=== PATIENT | female | born 1975 | race Caucasian/White ===

== ENCOUNTER 2017-08-14 10:15 | Inpatient (IN) | payer MEDICARE, MEDICAID ==
[2017-08-14 10:53] VITALS: BMI 22.4
--- NOTE | 2017-08-14 13:53 | HP ---
PREOPERATIVE DIAGNOSIS: Enlarged fibroid uterus. SURGERY TO BE PERFORMED: Total abdominal hysterectomy with bilateral salpingectomy and placement of ON-Q pain pump and nerve block. HISTORY OF PRESENT ILLNESS: Ms. Naty Malhotra is a 42-year-old, 0, virgin female, who was referred to me for pelvic pain and a pelvic mass consistent with the fibroid uterus. The patient gi ves a history of regular menstrual cycles that are not very heavy, but are very painful. She gives a history of multiple years of pelvic pain that she injured herself, but never had evaluated. The pat ient had a CT scan completed for palpable exam that was noted by her primary care physician, which de scribed a 9 cm exophytic fibroid as well as an enlarged uterus. An ultrasound in our office confirme d the findings of a fibroid uterus; however, the ultrasound was limited by the patient's inability to tolerate a vaginal ultrasound probe. The patient reports that the mass has been present for a numbe r of years and has grown very slowly. She does have mass effect symptoms, which she reports primaril y that her clothes have been fitting tighter. She desires definitive management of the fibroid uteru s. She has never had any children. She has never had a sexual partner and she is not planning on an y in her lifetime. She also verbalized her understanding of the inability to conceive or b ear a child after hysterectomy is performed. PAST MEDICAL HISTORY: Hypertension, hyperlipidemia, diabetes, and depression. CURRENT MEDICATIONS: Amlodipine 10 mg a day, atorvastatin 10 mg a day, citalopram 10 mg a day, metfo rmin 500 mg twice a day, metoprolol 100 mg a day, and Ambien as needed 2.5 mg at bedtime. ALLERGIES: Include PENICILLIN allergy with swelling of the throat as a child. She also is allergic to GLADYS INHIBITORS. SOCIAL HISTORY: The patient does not use alcohol, tobacco, or drugs. She is unemployed, single. Sh e has never been . She has never been sexually active and she lives with her sister. GYNECOLOGIC HISTORY: Last menstrual period 07/05/2017. Recent Pap smear was normal. No history of PID, STD, and is a virgin female. OBSTETRICAL HISTORY: G0. FAMILY HISTORY: Significant for hypertension and hypercholesterolemia and diabetes in her parents; b ladder in her paternal grandfather; lung in her maternal grandfather; and skin cancer in her paternal grandmother. REVIEW OF SYSTEMS: Negative except as stated above. PHYSICAL EXAMINATION: GENERAL: Small petite female, alert and oriented. VITAL SIGNS: Blood pressure 124/86, weight 115 pounds, BMI 22.5. GENERAL: No acute distress. Alert and oriented. CARDIOVASCULAR: Regular rate and rhythm. LUNGS: Nonlabored breathing. ABDOMEN: A palpable mass is felt below the umbilicus, which is mobile and nontender. GENITOURINARY: Normal external female genitalia. Vaginal exam, normal vaginal mucosa, no vaginal di scharge noted. No cervical lesions, but a very brief exam with a view of a very small cervix. Exam was limited by the patient's ability to tolerate a small vaginal speculum. The uterus is diffusely e nlarged with an enlarged fibroid filling the pelvis. MUSCULOSKELETAL: Normal range of motion. NEUROLOGIC: Oriented to person, place, and time. SKIN: No rashes. EXTREMITIES: No clubbing, cyanosis, or edema. ASSESSMENT AND PLAN: Ms. Naty Malhotra is a 42-year-old nulliparous female with an enlarged fibro id uterus from the limited ultrasound imaging and limited physical exam that the patient is able to t olerate. I suspect that there is an intramural as well as a pedunculated fibroid. Unfortunately, du e to the patient's small stature and the mass filling the entirety of her narrow pelvis and narrow in troitus, I believe that a minimally invasive approach is not feasible for this patient and that the b est route of hysterectomy for her will be in a total abdominal hysterectomy with bilateral salpingect gabe. The patient desires ovarian preservation if her ovaries appear normal. We have also discussed on ON-Q nerve block pump for postoperative pain control, which the patient desires to have placed at the end of the hysterectomy procedure. The patient's questions as well as her sister's questions hav e been answered in detail. She understands the risks are to include, but not limited to bleeding, in fection, damage to intraabdominal or pelvic organs, possible supracervical hysterectomy, safely acces sing and removing the cervix is surgically difficult. She also understands that future medical and/o r surgical management may be indicated based on pathologic review of the specimen and that we may not be able to identify and treat all problems at the time of surgery. The patient's questions have bee n answered.
[2017-10-08] MEDS ORDERED: CEFAZOLIN/Water 2 GM/20 ML SYRINGE ONE (06:42)
[2017-10-08] MEDS ORDERED: Famotidine 20 MG TAB ONE (06:43)
[2017-10-08] MEDS ORDERED: Gabapentin 300 MG CAP ONE (06:43)
[2017-10-08] MEDS ORDERED: Famotidine/PF 20 mg/2ml Vial ONE (06:44)
[2017-10-08] MEDS ORDERED: Fentanyl 250 MCG/5 ML VIAL ONE (06:53)
[2017-10-08 07:12] LABS: Hemoglobin 11.4 g/dL (12.0-16.0); Mean Corpuscular HGB CONC 33.2 g/dL (32.0-36.0); Mean Corpuscular Hemoglobin 26.7 pg (27.0-31.0); Mean Corpuscular Volume 80.6 fl (81.0-99.0); Mean Platelet Volume 8.2 fL (7.4-10.4); Platelet Count 322 thou/uL (130-400); RBC Distribution Width 14.6 % (11.5-14.5); Red Blood Cell (RBC) Count 4.28 mill/uL (4.20-5.40); White Blood Cell (WBC) Count 7.6 thou/uL (4.8-10.8)
[2017-10-08 07:25] LABS: BHCG - Serum Negative (NEGATIVE); Pregs Control Background? CLEAR/WHITE (CLR/WHITE); Pregs Control Bar Appear? YES (CONTROL BAR)
[2017-10-08] MEDS ORDERED: Levofloxacin 500 mg/D5W 100 ml Premix Bag ONE (07:26)
[2017-10-08] MEDS ORDERED: Clindamycin/D5W 900 mg/50 ml Premix Bag ONE (07:26)
[2017-10-08] MEDS ORDERED: Ropivacaine 0.2% 550 ML 750 ML NERVE BLCK SCH (08:00)
[2017-10-08] MEDS ORDERED: Bupivacaine/Epinephrine 0.25% 30 ML VIAL ONE (08:17)
[2017-10-08] MEDS ORDERED: Ropivacaine HCl/PF 750 ML in Premix Bag 1 BAG NERVE BLCK SCH (09:15)
[2017-10-08] MEDS ORDERED: Promethazine HCl 25 MG/ML VIAL SLOW IVP PRN (09:52)
[2017-10-08] MEDS ORDERED: Promethazine HCl 25 MG/ML VIAL IM PRN (09:52)
--- NOTE | 2017-10-08 12:17 | OP ---
DATE OF PROCEDURE: 10/08/2017 PREOPERATIVE DIAGNOSES: 1. Large fibroid uterus. 2. Pelvic pain. 3. Virginal introitus and narrow pelvis. POSTOPERATIVE DIAGNOSES: 1. Large fibroid uterus. 2. Pelvic pain. 3. Virginal introitus and narrow pelvis. PROCEDURES PERFORMED: 1. Total abdominal hysterectomy with bilateral salpingectomy and right oophorectomy. 2. Placement of ON-Q pump. SURGEON: Travis Gore D.O. WASTEWATER TECHNICIAN: Puja Fry M.D. ANESTHESIA: GETA per Dr. Thomas. ESTIMATED BLOOD LOSS: 100 mL. URINE OUTPUT: 100 mL. COMPLICATIONS: None. FINDINGS: 1. Narrow virginal introitus. 2. Narrow android pelvis. 3. Large 8-10 cm posterior fibroid filling the cul-de-sac. 4. Normal-appearing fallopian tubes. 5. Normal appearing left ovary. 6. Right ovary with adhesions to the fibroid and uterus, otherwise normal appearing. PROCEDURE IN DETAIL: Patient was taken back to the OR with IV fluids running. Once she was in the o perating room, she was placed in dorsal supine position and general anesthesia was obtained. Once th e patient was asleep, the abdomen and vagina were prepped and draped in normal fashion for abdominal hysterectomy. Prior to draping, A Gore catheter was placed using sterile technique and the bladder was drained with a Gore to gravity. The surgeons were scrubbed in. A Pfannenstiel skin incision wa s made with the scalpel. The skin incision was carried down through the subcutaneous tissue to the f ascia. Once the fascia was reached, it was incised in the midline and extended superolaterally with curved Alatorre scissors. Krishan clamps were placed at the superior border of the fascia, which was umer ply and bluntly dissected off the rectus abdominis muscles in both caudad and cephalad directions. O nce the fascia was dissected away from the rectus abdominis muscles, the peritoneum was bluntly enter ed in the midline and stretched laterally. The uterus was palpated as well as a large fibroid fillin g the cul-de-sac. The bowel was packed away with moist laps and O'Sony-O'Greene retractor was pl aced into the abdominal peritoneal cavity for retraction and visualization, both upper and lower blad es were placed on the O'Sony-O'Greene retractor with good visualization. The uterus was easily i dentified; however, the large fibroid could not be elevated out of the abdominal cavity to the uterus was left in situ for the beginning of the hysterectomy procedure. Beginning on the patient's left s elis, the left fallopian tube was identified and elevated. The mesosalpinx was cauterized and a salpi ngectomy was performed with the left tube being sent for pathologic review with the final specimen un til the left fallopian tube was removed. The round ligament was identified and elevated away from th e pelvic sidewall. One stay suture was placed in the round ligament. The round ligament was then in cised with Bovie cauterization and divided into anterior and posterior leaf, it was taken down anteri gladis where a bladder flap was created and the bladder was dissected away from the uterus and cervix. Next, a Negar clamp was placed just below the round ligament across the utero-ovarian ligament. Th is pedicle was cut with Alatorre scissors and doubly suture ligated. The left ovary then fell away to th e pelvic sidewall. The uterine artery was then skeletonized with Bovie cauterization in fine dissect ion technique. Once this was completed on the patient's left side, attention was turned to the right side. In similar fashion, the right salpingectomy was performed and the tube was handed off for pat hologic review. The round ligament was identified, suture ligated and divided into anterior and post erior leafs. The right ovary was noted to be more densely adherent to the posterior aspect of the ut erus and the fibroid, but attempt was made to preserve the ovary by placing a clamp across the utero- ovarian ligament. This pedicle was then cut and doubly suture ligated with ovary falling away to the pelvic sidewall on the right. The round ligament and broad ligament were divided on the patient's r ight side. The uterine artery was skeletonized. Negar clamp was placed over the uterine artery whi ch was then clamped, cut, and suture ligated. Next, the uterine artery on the patient's contralatera l side was clamped, cut, and ligated as well. The blood supply taken down and the bladder dissected down well away from the cervix. The cervix was easily palpated. The posterior fibroid uterus was al l contained behind the uterus growing from the posterior aspect and filling the cul-de-sac inferiorly . The cervix was completely from the posterior fibroid and at this point the decision was made to amputate the uterus and fibroid from the cervix to better visualization during the final step s of the hysterectomy with one finger between the cervix and the posterior fibroid. The uterus was a mputated from the cervix using Bovie cauterization. Once it was completely amputated, the uterus and fibroid were easily removed from the surgical field. There was good hemostasis at this point of the cervical stump. A double-toothed tenaculum was placed at the cervical stump. A series of straight clamps were used to dissect the remaining blood supply and paracervical tissue from the pelvis. This was achieved with 2 additional placement of straight clamps along the cervix bilaterally. Once the cervical vaginal junction was reached, curved Heaneys were placed bilaterally at the cervical vaginal junction. The remaining cervical stump was then amputated with Alatorre scissors and handed off for pat hologic review. Hofmeister stitch of Vicryl suture was placed under each of the right and left Heane y clamp. After the Negar clamps were removed, additional 3 sutures were placed in the midline for c omplete hemostasis of the vaginal cuff. Once hemostasis of the vaginal cuff was noted, the vaginal c uff and pedicles along the pelvic sidewall were copiously irrigated and suctioned dry. An area of bl eeding was noted at the right ovary at the IP ligament. Sutures were placed as well as Bovie cauteri zation used in an attempt to control this bleeding conservatively and preserve the ovary; however, a Negar clamp had to be applied behind the ovary for hemostasis. The ovary and remaining tissue was t hen cut and handed off for pathologic review. This pedicle was doubly suture ligated and hemostasis was then achieved. The layer of Jorge was applied behind the bladder flap. No areas of bleeding we re noted. All four sponges were removed from the abdominal cavity. The count was correct. The O'Co nnor-O'Greene was removed from the abdominal cavity. The muscle belly and fascia were inspected wi th no areas of bleeding noted. The peritoneum was then reapproximated with chromic suture. With the peritoneal layer closed, the muscle was inspected again with a small area of bleeding noted from the left pyramidalis. One suture was placed in this muscle with hemostasis noted. The muscle belly and fascia was irrigated and dried. No bleeding was noted. Under direct visualization, two ON-Q cathet er tips were placed from the superior aspect of the incision through the fascia and placed into the c orners of the incision. This catheter tips were primed. The fascia was then closed with PDS suture from corner to corner in a running fashion. The subcutaneous tissue was then irrigated and dried. A ny small areas of bleeding were controlled with Bovie cauterization. Subcutaneous tissue was then re approximated with plain gut suture. The skin was closed with 4-0 Monocryl and dressed with Dermabond dressing. The patient was then taken to the recovery room where she was cleaned and dried in good c ondition.
[2017-10-08] MEDS ORDERED: Bisacodyl 10 MG SUPP PR PRN (12:28)
[2017-10-08] MEDS ORDERED: Acetaminophen 325 MG TAB PO PRN (12:28)
[2017-10-08] MEDS ORDERED: Morphine 5 MG/ML SYRINGE SLOW IVP PRN (12:28)
[2017-10-08] MEDS ORDERED: Simethicone Chewable 80 MG TAB PO PRN (12:28)
[2017-10-08] MEDS ORDERED: Ondansetron HCl/PF 4 MG/2 ML Vial IVP PRN (12:28)
[2017-10-08] MEDS ORDERED: Acetaminophen/Codeine 30-300mg Tablet PO PRN (12:28)
[2017-10-08] MEDS ORDERED: diphenhydrAMINE 25 MG CAP PO PRN (12:28)
[2017-10-08] MEDS ORDERED: Ketorolac Tromethamine 30 MG/ML VIAL IVP SCH (12:30)
[2017-10-08] MEDS ORDERED: Ibuprofen 800 MG TAB PO PRN (12:59)
[2017-10-08] MEDS ORDERED: Ketorolac Tromethamine 30 MG/ML VIAL ONE (14:24)
[2017-10-08] MEDS ORDERED: Lidocaine 1% PF 5 ML VIAL ONE (14:24)
[2017-10-08] MEDS ORDERED: PHENYLEPHRINE-NS 100 MCG/ML 10 ML SYRINGE ONE (14:24)
[2017-10-08] MEDS ORDERED: Glycopyrrolate 0.2 MG/ML 5 ML SYRINGE ONE (14:24)
[2017-10-08] MEDS ORDERED: ePHEDrine/0.9% NaCl/PF SYRINGE 50 mg/10 ml ONE (14:24)
[2017-10-08] MEDS ORDERED: PROPOFOL 200 MG/20 ML VIAL ONE (14:24)
[2017-10-08] MEDS: Sodium Chloride 0.9% 1,000 ML IV SCH ×2 (16:29→18:16)
[2017-10-08] MEDS: metFORMIN 500 MG TAB PO SCH (18:12)
[2017-10-08] MEDS: Ketorolac Tromethamine 30 MG/ML VIAL IVP SCH (18:15)
[2017-10-08] MEDS: Citalopram 20 MG TAB PO SCH (21:29)
[2017-10-08] MEDS: Atorvastatin Calcium 40 MG TAB PO SCH (21:29)
[2017-10-08] MEDS: Calcium Carbonate + Vit D 1 TAB PO SCH (21:29)
[2017-10-08] MEDS: Amlodipine 5 MG TAB PO SCH (21:29)
[2017-10-09] MEDS: Ketorolac Tromethamine 30 MG/ML VIAL IVP SCH ×2 (00:55→06:37)
[2017-10-09 05:32] LABS: Hemoglobin 9.1 g/dL (12.0-16.0); Mean Corpuscular HGB CONC 33.3 g/dL (32.0-36.0); Mean Corpuscular Hemoglobin 26.9 pg (27.0-31.0); Mean Corpuscular Volume 80.8 fl (81.0-99.0); Mean Platelet Volume 7.9 fL (7.4-10.4); Platelet Count 218 thou/uL (130-400); RBC Distribution Width 14.7 % (11.5-14.5); Red Blood Cell (RBC) Count 3.39 mill/uL (4.20-5.40)
[2017-10-09] MEDS: Sodium Chloride 0.9% 1,000 ML IV SCH ×3 (06:37→17:52)
--- NOTE | 2017-10-09 08:47 | PDOC.EVN ---
Event Note - Event Note Event Note: POD#1 S: pain controlled with meds, ramirez out this AM, has not ambulated yet, tolerating clears O: Vital Signs Temp 98.4 F 10/09/17 07:57 Pulse 72 10/09/17 07:57 Resp 20 10/09/17 07:57 BP 128/64 10/09/17 07:57 Pulse Ox 98 10/09/17 07:57 Intake & Output 10/08/17 10/09/17 10/09/17 18:59 06:59 18:59 Intake Total 2640 Output Total 2550 Balance 90 Intake: Intake, IV Amount 2300 Oral 340 Output: Urine 850 Output, Ramirez 1300 Emesis 400 Other: Voiding Method Indwelling Catheter Indwelling Catheter Toilet Gen: NAD, A and O CHEST: nonlabored breathing Abd: soft, mild/expected distention and tympany, appropriate tenderness post op , incision CDI, catheter sites CDI Ext: SCDs on BLE Laboratory Results - last 24 hr 10/09/17 05:09 WBC 6.0 RBC 3.39 L Hgb 9.1 L Hct 27.4 L MCV 80.8 L MCH 26.9 L MCHC 33.3 RDW 14.7 H Plt Count 218 MPV 7.9 A/P: POD #1 PAN/RSO/LS, doing well, advance diet this AM, discussed plan to get up into chair this AM and ambulate/shower later today. Continue post op care.
[2017-10-09] MEDS: Loratadine 10 MG TAB PO SCH (09:32)
[2017-10-09] MEDS: metFORMIN 500 MG TAB PO SCH ×2 (09:32→17:50)
[2017-10-09] MEDS: Calcium Carbonate + Vit D 1 TAB PO SCH ×2 (09:32→22:52)
[2017-10-09] MEDS: Fluticasone Propionate Nasal Spray 16 gm Bottle NASAL SCH (09:33)
[2017-10-09] MEDS: Ibuprofen 800 MG TAB PO SCH ×2 (13:46→22:53)
[2017-10-09] MEDS: Acetaminophen/Codeine 30-300mg Tablet PO PRN (22:50)
[2017-10-09] MEDS: Atorvastatin Calcium 40 MG TAB PO SCH (22:52)
[2017-10-09] MEDS: Citalopram 20 MG TAB PO SCH (22:52)
[2017-10-09] MEDS: Amlodipine 5 MG TAB PO SCH (22:53)
[2017-10-10] MEDS: Sodium Chloride 0.9% 1,000 ML IV SCH ×2 (05:35→11:17)
[2017-10-10] MEDS: Ibuprofen 800 MG TAB PO SCH (06:36)
[2017-10-10] MEDS: Loratadine 10 MG TAB PO SCH (08:41)
[2017-10-10] MEDS: Calcium Carbonate + Vit D 1 TAB PO SCH (08:41)
[2017-10-10] MEDS: Fluticasone Propionate Nasal Spray 16 gm Bottle NASAL SCH (08:41)
[2017-10-10] MEDS: metFORMIN 500 MG TAB PO SCH (08:41)
--- NOTE | 2017-10-10 08:49 | PDOC.EVN ---
Event Note - Event Note Event Note: POD2 S: ambulating in the hallways, no issues voiding or passing gas, tolerating regular diet and pain controlled with oral meds O: VSWNL Gen: A and O, NAD CHest: nonlabored breathing Abd: soft, non distended, mild TTP around incision, bruising minimal/decreased from yesterday Nishi;dry Ext: NROM Path:benign A/P: POD2 doing well, would like to go home later this PM. Has pain meds at home, reviewed use of pain meds in detail.
[2017-10-10] MEDS: Acetaminophen/Codeine 30-300mg Tablet PO PRN (11:43)
[2017-10-10 12:12] VITALS: BP 130/65; TEMP 98.6
--- NOTE | 2017-10-10 19:29 | DIS ---
DATE OF ADMISSION: 10/08/2017 DATE OF DISCHARGE: 10/10/2017 ADMISSION DIAGNOSIS: Planned hysterectomy. DISCHARGE DIAGNOSIS: Planned hysterectomy. HOSPITAL COURSE: Ms. Naty Malhotra is a 42-year-old who was admitted on 10/08/2017 for a planned total abdominal hysterectomy for a large fibroid uterus. The patient underwent the aforementioned pr ocedure without complication. Her completed procedure was a total abdominal hysterectomy with bilate ral salpingectomy and right oophorectomy. The patient's postoperative course was uncomplicated. By postoperative day #2, she was ambulating in the hallways, tolerating a regular diet, and her pain was controlled with oral medications. She was voiding and passing gas without difficulty. On the day o f discharge, the ON-Q catheter tips are planned to be removed. She has a followup visit in my office in 1-2 weeks. Postoperative pain medication has been discussed in detail. The patient's questions have been answered.
[2017-10-13] MEDS ORDERED: Ibuprofen 800 MG TAB PO SCH (22:00)
== END 2017-10-10 13:06 | disposition home or self-care (01) | DRG 743 ==
LOC: SURG A 10-08 06:10 → 3SE 10-08 11:07
PROVIDERS: ADMIT Obstetrics & Gynecology; ATTEND Obstetrics & Gynecology
PROC: 0UT70ZZ Resection of Bilateral Fallopian Tubes, Open Approach (ICD-10-PCS; 2017-10-08)
PROC: 0UT20ZZ Resection of Bilateral Ovaries, Open Approach (ICD-10-PCS; 2017-10-08)
PROC: 0UT90ZZ Resection of Uterus, Open Approach (ICD-10-PCS; principal; 2017-10-10)
DX: D25.1 Intramural leiomyoma of uterus (principal); M95.5 Acquired deformity of pelvis; I10 Essential (primary) hypertension; E78.5 Hyperlipidemia, unspecified; E11.9 Type 2 diabetes mellitus without complications; F32.9 Major depressive disorder, single episode, unspecified; Z79.84 Long term (current) use of oral hypoglycemic drugs; Z88.0 Allergy status to penicillin; Z88.8 Allergy status to other drugs, medicaments and biological substances
CPT/HCPCS: 36415; 84703; 85027; 86850; 86900; 86901; 88307; A4216; J0131; J1885; J1956; J2001; J2405; J2704; J2795; J3010; J3490; S0028

== ENCOUNTER 2017-08-14 10:28 | Outpatient (CLI) | payer MEDICARE, MEDICAID ==
[2017-08-14 12:47] LABS: BHCG - Serum Negative (NEGATIVE); Pregs Control Background? CLEAR/WHITE (CLR/WHITE); Pregs Control Bar Appear? YES (CONTROL BAR)
== END 2017-08-14 10:29 | disposition home or self-care (01) ==
LOC: LABBT 10:28
PROVIDERS: ATTEND Obstetrics & Gynecology
DX: Z01.812 Encounter for preprocedural laboratory examination (principal); D25.9 Leiomyoma of uterus, unspecified
CPT/HCPCS: 84703; 86850; 86900; 86901

== ENCOUNTER 2017-10-18 10:20 | Observation (INO) | payer MEDICARE, MEDICAID ==
[2017-10-18] MEDS ORDERED: Fentanyl 100 MCG/2 ML VIAL ONE (11:27)
[2017-10-18] MEDS ORDERED: Midazolam HCl 2 mg/2 ml Vial ONE (11:37)
--- NOTE | 2017-10-18 12:34 | PDOC.OP ---
Operative Note - Operative Note Operative Note: Preop Dx: vaginal bleeding approx 1 week after hysterectomy Post op Dx: sp repair of vaginal cuff Surg: [facility] Assist: Lisandra Procedure: EUA, repair of vaginal cuff, repair of vaginal laceration Findings: left corner of vaginal cuff with active bleeding, right vaginal sidewall laceration, likely from previous exam or prep, repaired, admin of 1U PRBC in OR. Complications: none No specimens
[2017-10-18] MEDS ORDERED: Ondansetron HCl/PF 4 MG/2 ML Vial IVP PRN (13:32)
[2017-10-18] MEDS ORDERED: Zolpidem Tartrate 5 MG TAB PO PRN (13:32)
[2017-10-18] MEDS ORDERED: diphenhydrAMINE 25 MG CAP PO PRN (13:32)
[2017-10-18] MEDS ORDERED: Morphine 4 MG/ML VIAL SLOW IVP PRN (13:32)
[2017-10-18] MEDS ORDERED: Bisacodyl 10 MG SUPP PR PRN (13:32)
[2017-10-18] MEDS ORDERED: Simethicone Chewable 80 MG TAB PO PRN (13:32)
[2017-10-18] MEDS ORDERED: Acetaminophen 325 MG TAB PO PRN (13:32)
[2017-10-18] MEDS ORDERED: Calcium Chloride 1 GM/10 ML Abboject SYRINGE ONE (13:52)
[2017-10-18] MEDS ORDERED: ePHEDrine/0.9% NaCl/PF SYRINGE 50 mg/10 ml ONE (13:52)
[2017-10-18] MEDS ORDERED: PROPOFOL 200 MG/20 ML VIAL ONE (13:52)
[2017-10-18] MEDS ORDERED: Ondansetron HCl/PF 4 MG/2 ML Vial ONE (13:52)
[2017-10-18] MEDS ORDERED: Succinylcholine Chloride 20 MG/ML 10 ml SYRINGE FS ONE (13:52)
[2017-10-18] MEDS ORDERED: Lidocaine 1% PF 5 ML VIAL ONE (13:52)
[2017-10-18] MEDS ORDERED: Dexamethasone 20 MG/5 ML VIAL ONE (13:52)
--- NOTE | 2017-10-18 13:53 | OP ---
DATE OF PROCEDURE: 10/18/2017 PREOPERATIVE DIAGNOSIS: Vaginal bleeding, approximately 1-1/2 weeks after abdominal hysterectomy. POSTOPERATIVE DIAGNOSIS: Bleeding from vaginal cuff, status post repaired. PROCEDURES PERFORMED: Exam under anesthesia with oversew of the vaginal cuff and small vaginal sidew all laceration. SURGEON: Travis Gore D.O. SALES ADMINISTRATION SPECIALIST: Puja Fry M.D. ANESTHESIA: GETA per Dr. Thomas. COMPLICATIONS: None. BLOOD TRANSFUSION: Intraoperative blood transfusion of 1 unit of packed red blood cells at the end o f the case. ESTIMATED BLOOD LOSS: Prior to the operation, approximately 200 ml; intraoperative blood loss, less than 10 mL. FINDINGS: 1. Small right-sided vaginal laceration, likely due to previous exam or occurring during vaginal pre p. 2. Left corner of the vaginal cuff edge friable with small amount of bleeding. 3. Vaginal cuff intact. INDICATIONS: Ms. Naty Malhotra is approximately 1-1/2 weeks after a total abdominal hysterectomy for a large fibroid uterus. The patient's postoperative course has been uncomplicated until now. Adrien light had an incision check and was doing well earlier in my office this week. She reports no bleeding u ntil yesterday evening. She reports she had a very busy day and was very active and noted some spott ing whenever she laid down to sleep. When she woke up this morning, she noted profuse bright red ble eding and passage of clots, called our office and then presented to our [facility]. The patient was seen and examined there. I spoke with the ER doctor, and we agreed for transfer to [facility] in [place] for further evaluation and management. On presentation to the ER, I saw the patient and noted that her pad was completely soiled as well as part of her undergarme nt. Her hemoglobin at that time was approximately 8, and I counseled her for the indication for exam under anesthesia with suspected vaginal cuff bleed. The patient agreed. PROCEDURE DETAILS: The patient was taken back to the OR with IV fluids running. Once she was in the OR, general anesthesia was obtained. The patient was then placed in the lithotomy position using ca ndy cane stirrups. The vagina was then prepped and draped in normal fashion for vaginal surgery. A Gore catheter was placed using sterile technique. A PDS pediatric speculum was placed into the vagi na and the vaginal cuff was able to be visualized in its entirety. An Allis clamp was placed at the patient's left corner of the vaginal cuff where the active bleeding was noted. This area of the cuff was oversewn with Vicryl suture with hemostasis noted immediately. Of note, the patient was known t o have a small introitus and a small cervix at the time of her last surgery and her vaginal cuff appe ared to be healing well. The entire approximate 2 cm of the vaginal cuff were inspected and oversewn while she was in the OR today. Once the vaginal cuff was oversewn, the vagina was taken off tension with no bleeding noted. A small sidewall laceration was noted at the right hymenal ring and this wa s repaired with one stitch of Vicryl suture. FloSeal was placed up at the vaginal cuff wall and 1 un it of packed red blood cells was administered at the end of the case. POSTOPERATIVE PLANS: Include transfer to the recovery room, transfusion of a second unit of packed r ed blood cells, and then transferred to the floor for further observation later this afternoon.
[2017-10-18 14:23] VITALS: BMI 22.4
[2017-10-18] MEDS: Ketorolac Tromethamine 30 MG/ML VIAL IVP SCH (18:01)
[2017-10-19] MEDS: Ketorolac Tromethamine 30 MG/ML VIAL IVP SCH ×2 (01:12→06:21)
[2017-10-19 05:26] LABS: Mean Corpuscular HGB CONC 34.3 g/dL (32.0-36.0); Mean Corpuscular Hemoglobin 28.7 pg (27.0-31.0); Mean Corpuscular Volume 83.6 fl (81.0-99.0); Platelet Count 235 thou/uL (130-400); RBC Distribution Width 14.3 % (11.5-14.5); Red Blood Cell (RBC) Count 3.48 mill/uL (4.20-5.40)
[2017-10-19 07:48] VITALS: BP 135/66; TEMP 98.9
--- NOTE | 2017-10-19 11:15 | PDOC.EVN ---
Event Note - Event Note Event Note: HD2 POD 1 S: feeling well, no concerns, no bleeding O: Vital Signs (12 hours) Temp Pulse Resp BP Pulse Ox 10/19/17 08:21 98.9 F 78 16 10/19/17 07:25 98.9 F 78 16 135/66 92 L 10/19/17 01:10 98.3 F 86 16 133/63 Weight Weight 115 lb GEN : NAD Abd: soft, NTTP Nishi: dry Laboratory Results - last 24 hr 10/19/17 05:10 WBC 11.0 H RBC 3.48 L Hgb 10.0 L Hct 29.1 L MCV 83.6 MCH 28.7 MCHC 34.3 RDW 14.3 Plt Count 235 MPV 7.0 L POD1 sp oversew bleeding vag cuff and transfusion of 2 U PRBCs. Doing well, ready for DC.
--- NOTE | 2017-10-19 19:56 | DIS ---
ADMISSION DIAGNOSES: Vaginal bleeding and symptomatic anemia. DISCHARGE DIAGNOSIS: Status post revision of vaginal cuff and transfusion of 2 units of packed red b lood cells. HOSPITAL COURSE: Ms. Naty Malhotra presented to the ER with acute vaginal bleeding and symptomati c anemia. She was expedited to the operating room where she had an exam under anesthesia and active bleeding of the vaginal cuff was noted. The vaginal cuff was oversewn with hemostasis. The patient received 1 unit of packed red blood cells intraoperative and then a second postoperative. On postope rative day #1, she was doing well. She had a hemoglobin of 10. She was ambulating and tolerating re gular diet and had no vaginal bleeding. The patient was discharged home in good condition.
[2017-10-23 10:30] LABS: Actual Bicarbonate (HCO3a) 21.9 mEq/L (22-26); Analyzer IN Cardio OR; Base Excess (BEa) -4.3 mEq/L (0 (+/-) 2.5); Hematocrit-ABG 22.1 % (36.0-47.0); Hemoglobin (Hb) 6.5 g/dL (12.0-16.0); O2 Tension (PaO2) 236.1 mmHg (80.0-100.0); Puncture Site ALINE
== END 2017-10-19 12:04 | disposition home or self-care (01) ==
LOC: ERS 10:20 → SDC 11:35 → INTOOBSV 12:29 → 3SE 12:29
PROVIDERS: ADMIT Obstetrics & Gynecology; ATTEND Obstetrics & Gynecology
PROC: 0UQG7ZZ Repair Vagina, Via Natural or Artificial Opening (ICD-10-PCS; principal; 2017-10-18)
DX: S31.41XA Laceration without foreign body of vagina and vulva, initial encounter (principal); Z88.0 Allergy status to penicillin; Z90.710 Acquired absence of both cervix and uterus; Z88.8 Allergy status to other drugs, medicaments and biological substances
CPT/HCPCS: 36430; 57200; 82805; 85027; 86850; 86900; 86901; 86920; 96374; 96376; 99285; G0378; P9016; 36415; A4216; J1100; J1885; J2001; J2250; J2405; J2704; J3010

== ENCOUNTER 2019-03-20 09:34 | Outpatient (CLI) | payer MEDICARE, MEDICAID ==
--- NOTE | 2019-03-20 12:57 | ULT ---
RIGHT BREAST DIAGNOSTIC ULTRASOUND: INDICATIONS: Multiple masses seen within the right breast. FINDINGS: Within the right breast 10 o'clock position, 4 cm from the nipple, there is a 1.2 x 1.1 x 0.7 cm, adrian id, well circumscribed, hypoechoic mass. Within the right breast 11 o'clock position, 4 cm from the nipple, there is a 1.1 cm, well circumscri bed, oval mass. Within the right breast 12 o'clock position, 5 cm from the nipple, there is a 0.9 x 1.6 x 0.6 cm, wel l circumscribed mass. Within the right breast 12 o'clock position, 4 cm from the nipple, there is a 0.9 x 0.6 cm well circu mscribed mass. Within the right breast 12 o'clock position, 2 cm from the nipple, there is a 1.2 x 1 cm oval mass. Within the right breast 3 o'clock position, 2 cm from the nipple, there is a 0.7 x 0.97 cm mass. IMPRESSION: BI-RADS category 4 - suspicious abnormality. Multiple masses within the right breast. Ultrasound guided core biopsy of at least two of the more la rger lesions, particularly in the right breast 12 o'clock position, is recommended. 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 However, given the patient's age, confirmation with histologic sampling of at least two of the lesions is recommended. The patient was counseled of the findings prior to leaving [facility]. The patient is currentl y undergoing aspirin therapy and have asked that the patient be discontinued from the aspirin therapy for 7 to 10 days prior to the biopsy. The patient will discuss the recommendations with the ordering physician. POS: OFF
== END 2019-03-20 09:35 | disposition home or self-care (01) ==
LOC: BICULT 09:34
PROVIDERS: ATTEND Obstetrics & Gynecology
DX: N63.11 Unspecified lump in the right breast, upper outer quadrant (principal)

== ENCOUNTER 2019-10-27 09:36 | Outpatient (CLI) | payer MEDICARE, OTHER ==
--- NOTE | 2019-10-27 13:23 | ULT ---
RIGHT BREAST ULTRASOUND: 10/27/19 HISTORY: Follow-up of nodules. COMPARISON: 03/20/19. FINDINGS: Multiple well circumscribed nonshadowing solid masses in the right breast are again seen and are esse ntially stable. These include: 10 o'clock position 4 cm from the nipple: 1.4 x 0.9 x 0.8 cm (previously 1.1 x 1.2 x 0.7 cm). 1 o'clock 4 cm from the nipple: 1.2 x 1.0 x 1.0 cm (previously 1.2 x 1.1 x 1.0 cm). 12 o'clock 5 cm from the nipple: 1.7 x 0.9 x 0.8 cm (previously 1.6 x 0.9 x 0.6 cm). 12 o'clock 4 cm from the nipple: 0.9 x 0.7 x 0.7 cm (previously 0.9 x 0.6 x 0.6 cm). 12 o'clock 2 cm from the nipple: 1.1 x 1.1 x 0.9 cm (previously 1.2 x 1 x 1 cm). 3 o'clock 2 cm from the nipple: 0.7 x 0.8 x 0.4 cm (previously1.0 x 0.7 x 0.5 cm). IMPRESSION: BIRADS 3: Probably Benign Finding Initial Short-Interval Follow-Up Suggested Initial short-term follow up (usually 6-month) examination
== END 2019-10-27 09:37 | disposition home or self-care (01) ==
LOC: BICMAMMO 09:36
PROVIDERS: ATTEND Family Medicine
DX: R92.8 Other abnormal and inconclusive findings on diagnostic imaging of breast (principal)

== ENCOUNTER 2020-05-09 08:55 | Outpatient (CLI) | payer MEDICARE, OTHER ==
--- NOTE | 2020-05-09 09:53 | MMO ---
Bilateral MAMMO Bilat Diag [facility]. CLINICAL HISTORY: Patient is 44 years old and is seen for follow-up at short-interval from prior study. The patient has no family history of breast cancer. The patient has no personal history of cancer. VIEWS: The views performed were: bilateral craniocaudal with tomosynthesis; bilateral mediolateral oblique with tomosynthesis; and bilateral mediolateral with tomosynthesis. FILMS COMPARED: The present examination has been compared to prior imaging studies performed at [facility] on 03/06/2019, and at [facility] on 03/20/2019, 10/27/2019 and 05/09/2020. This study has been interpreted with the assistance of computer-aided detection. MAMMOGRAM FINDINGS: The breasts are heterogeneously dense, which could obscure a lesion on mammography. Nodularity is stable in the right breast on mammo and US. F/U right breast US is recommended in 6 months. In the left breast, there are no suspicious masses, calcifications or areas of architectural distortion. IMPRESSION: FINDING IN THE RIGHT BREAST IS PROBABLY BENIGN. FOLLOW-UP IN 6 MONTHS IS RECOMMENDED. THE RESULTS OF THIS EXAM WERE SENT TO THE PATIENT. ACR BI-RADS Category 3 - Probably benign finding - short interval follow-up suggested. [facility] will notify the patient of the need for additional imaging services. MAMMOGRAPHY NOTE: 1. A negative mammogram report should not delay a biopsy if a dominant of clinically suspicious mass is present. 2. Approximately 10% to 15% of breast cancers are not detected by mammography. 3. Adenosis and dense breasts may obscure an underlying neoplasm. Reported by: IMMI MCFARLAND MD Electonically Signed: [id number]
--- NOTE | 2020-05-09 10:41 | ULT ---
RIGHT BREAST ULTRASOUND: HISTORY: Followup nodules. COMPARISON: 03/20/2019 and 10/27/2019. FINDINGS: Correlation is made with mammograms of today. Multiple well-circumscribed nonshadowing solid masses in the right breast are again seen and essentia lly remain stable. These include: 10 o'clock position 4 cm from the nipple: 1.2 x 1.1 x 0.7 cm (previously 1.4 x 0.9 x 0.8 cm). 11 o'clock position 4 cm from the nipple: 1.2 x 1.1 x 1 cm (previously 1.2 x 1.0 x 1.0 cm). 12 o'clock 5 cm from the nipple: 1.6 x 0.6 x 1 cm (previously 1.7 x 0.9 x 0.8 cm). 12 o'clock 4 cm from the nipple: 0.9 x 0.5 x 0.7 cm (previously 0.9 x 0.7 x 0.7 cm). 12 o'clock 2 cm from the nipple: 1.2 x 1 x 0.9 cm (previously 1.1 x 1.1 x 0.9 cm). 3 o'clock 2 cm from the nipple: 0.7 x 0.8 x 0.4 cm (previously 0.7 x 0.8 x 0.4 cm). IMPRESSION: BIRADS category 3 - probably benign findings. Six-month followup right breast ultrasound is recommen ded. POS: OFF
== END 2020-05-09 08:56 | disposition home or self-care (01) ==
LOC: BICMAMMO 08:55
PROVIDERS: ATTEND Physician Assistant
DX: R92.8 Other abnormal and inconclusive findings on diagnostic imaging of breast (principal)
CPT/HCPCS: 76642; 77066; G0279

== ENCOUNTER 2020-09-26 07:02 | Outpatient (CLI) | payer MEDICARE, OTHER | END 2020-09-26 07:03 | disposition home or self-care (01) | LOC: BICULT 07:02 | PROVIDERS: ATTEND Family Medicine | DX: R74.8 Abnormal levels of other serum enzymes (principal); K76.0 Fatty (change of) liver, not elsewhere classified | CPT/HCPCS: 93975 ==

== ENCOUNTER 2020-11-18 10:18 | Outpatient (CLI) | payer MEDICARE, OTHER | END 2020-11-18 10:19 | disposition home or self-care (01) | LOC: BICMAMMO 10:18 | PROVIDERS: ATTEND Family Medicine | DX: R92.8 Other abnormal and inconclusive findings on diagnostic imaging of breast (principal); D24.1 Benign neoplasm of right breast | CPT/HCPCS: G0279 ==